=== PATIENT | female | born 1960 | race Caucasian/White ===

== ENCOUNTER 2024-02-17 12:31 | Outpatient (CLI) | payer MEDICARE, BC, SELFPAY | END 2024-02-17 12:32 | disposition home or self-care (01) | LOC: INJ CL 12:35 | PROVIDERS: PCP Family Medicine; Visit Provider Family Medicine | DX: M17.12 Unilateral primary osteoarthritis, left knee (principal); M25.562 Pain in left knee | CPT/HCPCS: 64454 ==

== ENCOUNTER 2024-03-02 12:00 | Outpatient (CLI) | payer MEDICARE, BC, SELFPAY | END 2024-03-02 12:01 | disposition home or self-care (01) | LOC: INJ CL 12:00 | PROVIDERS: PCP Family Medicine; Visit Provider Family Medicine | DX: M17.12 Unilateral primary osteoarthritis, left knee (principal); M25.562 Pain in left knee; G89.29 Other chronic pain | CPT/HCPCS: 64624; J2250; J3010 ==

== ENCOUNTER 2024-05-25 14:32 | Outpatient (CLI) | payer MEDICARE, BC, SELFPAY | END 2024-05-25 14:33 | disposition home or self-care (01) | LOC: INJ CL 14:33 | PROVIDERS: PCP Family Medicine; Visit Provider Family Medicine | DX: M17.11 Unilateral primary osteoarthritis, right knee (principal); M25.561 Pain in right knee | CPT/HCPCS: 64454 ==

== ENCOUNTER 2024-06-29 11:51 | Outpatient (CLI) | payer MEDICARE, BC, SELFPAY | END 2024-06-29 11:52 | disposition home or self-care (01) | LOC: INJ CL 11:52 | PROVIDERS: PCP Family Medicine; Visit Provider Family Medicine | DX: M17.11 Unilateral primary osteoarthritis, right knee (principal); M25.561 Pain in right knee | CPT/HCPCS: 64624; J2250; J3010 ==